=== PATIENT | female | born 1955 | race Caucasian/White ===

== ENCOUNTER 2023-07-13 14:49 | Emergency (ER) | payer SELFPAY ==
[2023-07-13 14:54] VITALS: BP 164/103
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
== END 2023-07-13 19:25 | disposition home or self-care (01) ==
LOC: EMR 14:49
PROVIDERS: EMERGENCY PHYSICIAN Emergency Medicine; FAMILY PHYSICIAN Family Medicine
DX: S00.83XA Contusion of other part of head, initial encounter (principal); V43.52XA Car driver injured in collision with other type car in traffic accident, initial encounter
CPT/HCPCS: 99284; 70450; 70486; 72125

== ENCOUNTER → 2023-08-04 07:20 | Outpatient (REF) | payer OTHER, SELFPAY | LOC: HWWDC 07:20 | PROVIDERS: ATTENDING PHYSICIAN Internal Medicine | DX: Z12.31 Encounter for screening mammogram for malignant neoplasm of breast (principal) | CPT/HCPCS: 77063; 77067 ==

== ENCOUNTER 2024-06-17 20:29 | Emergency (ER) | payer OTHER, SELFPAY ==
[2024-06-17 20:30] VITALS: BP 159/95
[2024-06-17 20:47] VITALS: BMI 28.6
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
== END 2024-06-17 21:47 | disposition home or self-care (01) ==
LOC: EMR 20:29
PROVIDERS: EMERGENCY PHYSICIAN Emergency Medicine; FAMILY PHYSICIAN Internal Medicine
DX: S61.412A Laceration without foreign body of left hand, initial encounter (principal); W26.0XXA Contact with knife, initial encounter
CPT/HCPCS: 12001; 99282